=== PATIENT | female | born 1985 | race American Indian/Alaskan Native ===

== ENCOUNTER 2017-08-11 20:48 | Inpatient (IN) | payer MEDICAID, OTHER ==
[2017-08-11 21:43] LABS: Hematocrit 25.4 % (30.3-42.9); Hemoglobin 7.5 gm/dl (10.1-14.3); Mean Corpuscular HGB Conc 30 % (30-34); Red Blood Count 4.36 M/mm3 (3.65-5.03)
[2017-08-11 21:44] LABS: Basophils % (Auto) 0.6 % (0.0-1.8); Eosinophils # (Auto) 0.1 K/mm3 (0.0-0.4); Eosinophils % (Auto) 1.1 % (0.0-4.3); Lymphocytes # (Auto) 2.2 K/mm3 (1.2-5.4); Lymphocytes % (Auto) 33.6 % (13.4-35.0); Monocytes # (Auto) 0.5 K/mm3 (0.0-0.8); Monocytes % (Auto) 7.1 % (0.0-7.3); Platelet Count 234 K/mm3 (140-440)
[2017-08-11 21:49] LABS: Mean Corpuscular Hemoglobin 17 pg (28-32); Mean Corpuscular Volume 58 fl (79-97); Red Cell Distribution Width 21.3 % (13.2-15.2)
[2017-08-11 22:01] LABS: BUN/Creatinine Ratio 10; Blood Urea Nitrogen 7 mg/dL (7-17); Calcium 8.9 mg/dL (8.4-10.2); Hemolysis Index 3
[2017-08-12 00:03] LABS: Bilirubin,Urine NEG (Negative); Blood,Urine NEG (Negative); Color,Urine Yellow (Yellow); Mucus,Urine 1+ /HPF; Protein,Urine <15 mg/dL mg/dL (Negative); Urobilinogen,Urine < 2.0 mg/dL (<2.0); WBC,Urine < 1.0 /HPF (0.0-6.0)
[2017-08-12] MEDS ORDERED: TYLENOL PO ONE (05:59)
[2017-08-12] MEDS ORDERED: TYLENOL ONE (06:01)
[2017-08-12] MEDS ORDERED: ZOFRAN IV ONE (09:25)
[2017-08-12] MEDS ORDERED: MORPHINE IV ONE ×3 (09:26→12:50)
--- NOTE | 2017-08-12 09:29 | Emergency Department Report ---
HPI - General Chief Complaint: Chest Pain Time Seen by Provider: 08/12/17 09:01 - HPI HPI: Room 19 The patient is a 32-year-old female presenting with a chief complaint of body pain. The patient stated 4 which is intermittent headache radiating to her face. The patient states for the past 3 days she's had intermittent substernal chest pain described as a sharpness and tightness. Patient also noticed some epigastric abdominal discomfort intermittently for one week. The patient states her chest tightness is associated with shortness of breath and diaphoresis. Patient denies nausea or vomiting. Patient denies any history of fever. Patient denies any preceding trauma. The patient states since 2014 her cycles usually last approximately 7-8 days and she goes to approximately 8 pads per day. The patient states she has not been diagnosed with anemia recently Location: [See above] Duration: [See above] Quality: Sharp/tightness Severity: 06/26 Modifying factors: [see above] Context: See above Mode of transportation: Unknown ED Past Medical Hx - Past Medical History Previous Medical History?: Yes Hx Hypertension: Yes Hx GERD: Yes Additional medical history: Fibroids, Ovarian cyst - Surgical History Past Surgical History?: No - Family History Family history: no significant - Social History Smoking Status: Current Every Day Smoker (1/2 pack per day) Substance Use Type: Marijuana ED Review of Systems ROS: Stated complaint: CHEST,STOMACH PAIN,DIZZY,HEADACHE Other details as noted in HPI Constitutional: diaphoresis Respiratory: shortness of breath Cardiovascular: chest pain Gastrointestinal: abdominal pain. denies: nausea, vomiting Genitourinary: other (menorrhagia) Musculoskeletal: back pain Neurological: headache Physical Exam - Physical Exam Vital Signs: Vital Signs 08/11/17 08/11/17 08/12/17 21:11 21:13 07:21 Temperature 99.2 F 97.6 F Pulse Rate 88 76 Respiratory 20 14 16 Rate Blood Pressure 136/87 Blood Pressure [Left] O2 Sat by Pulse 100 100 Oximetry 08/12/17 07:40 Temperature Pulse Rate 57 L Respiratory 16 Rate Blood Pressure Blood Pressure 146/97 [Left] O2 Sat by Pulse 98 Oximetry Physical Exam: GENERAL: The patient is well-developed well-nourished female lying on stretcher not appear to be in acute distress. [] HEENT: Normocephalic. Atraumatic. Extraocular motions are intact. Patient has moist mucous membranes. NECK: Supple. Trachea midline CHEST/LUNGS: Clear to auscultation. There is no respiratory distress noted. HEART/CARDIOVASCULAR: Regular. There is no tachycardia. There is no gallop rub or murmur. ABDOMEN: Abdomen is soft. There is no rebound or guarding. Patient has normal bowel sounds. There is no abdominal distention. SKIN: There is no rash. There is no diaphoresis. NEURO: The patient is awake, alert, and oriented. The patient is cooperative. The patient has no focal neurologic deficits. The patient has normal speech. Cranial nerves II through XII grossly intact, no drift MUSCULOSKELETAL: There is no evidence of acute injury. ED Course Vital Signs 08/11/17 08/11/17 08/12/17 21:11 21:13 07:21 Temperature 99.2 F 97.6 F Pulse Rate 88 76 Respiratory 20 14 16 Rate Blood Pressure 136/87 Blood Pressure [Left] O2 Sat by Pulse 100 100 Oximetry 08/12/17 07:40 Temperature Pulse Rate 57 L Respiratory 16 Rate Blood Pressure Blood Pressure 146/97 [Left] O2 Sat by Pulse 98 Oximetry ED Medical Decision Making - Lab Data Result diagrams: 08/11/17 21:26 08/11/17 21:26 Laboratory Tests 08/11/17 08/11/17 08/11/17 21:26 21:26 21:26 WBC 6.4 RBC 4.36 Hgb 7.5 L Hct 25.4 L MCV 58 L MCH 17 L MCHC 30 RDW 21.3 H Plt Count 234 Lymph % (Auto) 33.6 Owen % (Auto) 7.1 Eos % (Auto) 1.1 Baso % (Auto) 0.6 Lymph # 2.2 Owen # 0.5 Eos # 0.1 Baso # 0.0 Seg Neutrophils % 57.6 Seg Neutrophils # 3.7 Sodium 138 Potassium 3.6 Chloride 101.9 Carbon Dioxide 21 L Anion Gap 19 BUN 7 Creatinine 0.7 Estimated GFR > 60 BUN/Creatinine Ratio 10 Glucose 135 H Calcium 8.9 Troponin T < 0.010 HCG, Qual Negative Urine Color Urine Turbidity Urine pH Ur Specific [place] Urine Protein Urine Glucose (UA) Urine Ketones Urine Blood Urine Nitrite Urine Bilirubin Urine Urobilinogen Ur Leukocyte Esterase Urine WBC (Auto) Urine RBC (Auto) U Epithel Cells (Auto) Urine Mucus 08/11/17 08/12/17 08/12/17 Unknown 00:22 03:25 WBC RBC Hgb Hct MCV MCH MCHC RDW Plt Count Lymph % (Auto) Owen % (Auto) Eos % (Auto) Baso % (Auto) Lymph # Owen # Eos # Baso # Seg Neutrophils % Seg Neutrophils # Sodium Potassium Chloride Carbon Dioxide Anion Gap BUN Creatinine Estimated GFR BUN/Creatinine Ratio Glucose Calcium Troponin T < 0.010 < 0.010 HCG, Qual Urine Color Yellow Urine Turbidity Clear Urine pH 5.0 Ur Specific [place] 1.025 Urine Protein <15 mg/dl Urine Glucose (UA) Neg Urine Ketones Neg Urine Blood Neg Urine Nitrite Neg Urine Bilirubin Neg Urine Urobilinogen < 2.0 Ur Leukocyte Esterase Neg Urine WBC (Auto) < 1.0 Urine RBC (Auto) 1.0 U Epithel Cells (Auto) 1.0 Urine Mucus 1+ - EKG Data -: EKG Interpreted by Me EKG shows normal: sinus rhythm Rate: normal - EKG Data When compared to previous EKG there are: previous EKG unavailable Interpretation: nonspecific ST-T wave jaycee (early repolarization) - Radiology Data Radiology results: report reviewed (CT head, chest x-ray), image reviewed (CT head, chest x-ray) interpreted by me: Chest x-ray-no focal laboratories, no pneumothorax CT head-normal CT head - Differential Diagnosis ACS, symptomatic anemia, migraines Critical care attestation.: If time is entered above; I have spent that time in minutes in the direct care of this critically ill patient, excluding procedure time. ED Disposition Clinical Impression: Chest pain, Headache, Anemia Disposition: OP ADMIT IP TO THIS HOSP Is pt being admited?: Yes Does the pt Need Aspirin: Yes Condition: Fair Instructions: Chest Pain (ED) Referrals: PRIMARY CARE, [Primary Care Provider] - 3-5 Days Time of Disposition: 10:25 (hospitalist notified (Dr Kingston))
[2017-08-12] MEDS ORDERED: ATROVENT IH ONE (09:36)
[2017-08-12] MEDS ORDERED: PROVENTIL IH ONE (09:36)
[2017-08-12] MEDS ORDERED: MORPHINE ONE (12:50)
--- NOTE | 2017-08-12 14:06 | History and Physical Report ---
History of Present Illness Date of examination: 08/12/17 Date of admission: 08/12/17 Chief complaint: General body pains and shortness of breath and chest pain History of present illness: 32-year-old female was significant past medical history presented to the emergency room with generalized body pains chest pain headache and abdominal pain , patient states that she has these complaints intermittent for the past 34 days Patient also reports chest tightness with mild shortness of breath and diaphoresis , grates pain between 4-5/10 Denies nausea vomiting or palpitations , no relieving and aggravating factors . Patient has history of menorrhagia with history of fibroid uterus Patient reports worsening of her tolerance, fatigue and tiredness Has history of hypertension not on any medications First set of cardiac enzymes negative, CT head and chest x-ray within normal limits Past History Past Medical History: hypertension, other (fibroid uterus, menorrhagia) Past Surgical History: No surgical history Social history: lives with family, smoking, alcohol abuse (occasional) Family history: diabetes, hypertension Medications and Allergies Allergies Allergy/AdvReac Type Severity Reaction Status Date / Time No Known Allergies Allergy Verified 03/16/16 11:12 Review of Systems Constitutional: fatigue, weakness, no weight loss, no weight gain Ears, nose, mouth and throat: no nasal congestion, no nasal discharge Cardiovascular: chest pain, no orthopnea, no palpitations Respiratory: no cough with sputum, no shortness of breath Gastrointestinal: no abdominal pain, no nausea, no vomiting Genitourinary Female: menorrhagia, no pelvic pain, no dysuria Musculoskeletal: no myalgias, no arthritis Integumentary: no rash, no lesions Neurological: headaches, migraines, no seizures, no syncope Psychiatric: no anxiety, no depression Endocrine: no cold intolerance, no heat intolerance, no polydipsia, no polyuria Hematologic/Lymphatic: no easy bruising, no easy bleeding Allergic/Immunologic: no urticaria, no allergic rhinitis Exam - Constitutional Vitals: Temp Pulse Resp BP Pulse Ox 97.6 F 86 16 137/78 98 08/11/17 21:13 08/12/17 12:49 08/12/17 12:49 08/12/17 12:49 08/12/17 12:49 General appearance: Present: no acute distress, well-nourished, obese - EENT Eyes: Present: PERRL, EOM intact - Neck Neck: Present: supple, normal ROM - Respiratory Respiratory effort: normal Respiratory: negative: rales, rhonchi, wheezing - Cardiovascular Rhythm: regular Heart Sounds: Present: S1 & S2 - Extremities Extremities: no ischemia, No edema - Abdominal General gastrointestinal: Present: soft, non-tender, non-distended, normal bowel sounds - Integumentary Integumentary: Present: clear, warm - Musculoskeletal Musculoskeletal: strength equal bilaterally - Psychiatric Psychiatric: appropriate mood/affect, cooperative - Neurologic Neurologic: CNII-XII intact, moves all extremities Results - Labs CBC & Chem 7: 08/11/17 21:26 08/11/17 21: Labs: Abnormal lab results 08/11/17 08/11/17 Range/Units 21: 21: Hgb 7.5 L (10.1-14.3) gm/dl Hct 25.4 L (30.3-42.9) % MCV 58 L (79-97) fl MCH 17 L (28-32) pg RDW 21.3 H (13.2-15.2) % Carbon Dioxide 21 L (22-30) mmol/L Glucose 135 H (65-100) mg/dL Assessment and Plan --Atypical chest pain; probably secondary to anemia and poor perfusion Serial cardiac enzymes, EKG, aspirin and beta blockers and messi inhibitors and nitrates Current medications --Symptomatic Anemia; hemoglobin is 7.5 Patient has history of menorrhagia, closely monitor H&H and transfuse as needed She denies symptoms of vague chest pain, fatigue headache and generalized weakness Patient needs to see MAMMOGRAPHY TECHNICIAN for further evaluation and management upon discharge --History of fibroid uterus/menorrhagia Supportive care, advised to follow MAMMOGRAPHY TECHNICIAN for further evaluation upon discharge --Possible gastroesophageal reflux disease; Protonix --Ongoing tobacco use; counseling smoking cessation Nicotine patch as needed We'll closely monitor the patient and adjust the management as needed May down grade 2 medical floor with remote telemetry Plan of care reviewed with the patient, answered all her questions Possible discharge in 1-2 days stable
[2017-08-12] MEDS ORDERED: NITROSTAT SL PRN (15:46)
[2017-08-12] MEDS ORDERED: MORPHINE IV PRN (15:46)
[2017-08-12] MEDS ORDERED: TYLENOL PO PRN (15:46)
[2017-08-12] MEDS: HABITROL TD SCH (20:46)
[2017-08-12] MEDS: FEOSOL PO SCH (23:55)
[2017-08-12] MEDS: PEPCID PO SCH (23:55)
[2017-08-13 05:14] VITALS: BP 114/66
[2017-08-13 08:02] LABS: Hematocrit 25.6 % (30.3-42.9); Hemoglobin 7.9 gm/dl (10.1-14.3)
[2017-08-13 08:11] LABS: Chol/HDL Ratio 2.17 %; HDL Cholesterol 41 mg/dL (40-59); LDL Cholesterol,Direct 42 mg/dL (50-130)
[2017-08-13] MEDS: FEOSOL PO SCH (09:56)
[2017-08-13] MEDS: PEPCID PO SCH (09:56)
[2017-08-13] MEDS: HABITROL TD SCH (09:56)
[2017-08-13] MEDS ORDERED: LOVENOX SUB-Q SCH (10:00)
--- NOTE | 2017-08-13 13:14 | Discharge Summary ---
Providers - Providers Date of Admission: 08/12/17 12:52 Date of discharge: 08/13/17 Attending physician: KEATON URRUTIA Primary care physician: DIRECTOR OF ADULT EPILEPSY Hospitalization Reason for admission: chest pain Condition: Fair Disposition: DC-01 TO HOME OR SELFCARE Time spent for discharge: 31 min Core Measure Documentation - Palliative Care Palliative Care/ Comfort Measures: Not Applicable - Core Measures Any of the following diagnoses?: none Exam - Constitutional Vitals: Temp Pulse Resp BP Pulse Ox 97.6 F 80 20 114/66 96 08/13/17 05:29 08/13/17 05:29 08/13/17 10:06 08/13/17 05:29 08/13/17 10:00 General appearance: Present: no acute distress, well-nourished - EENT Eyes: Present: PERRL, EOM intact - Neck Neck: Present: supple, normal ROM - Respiratory Respiratory effort: normal Respiratory: bilateral: diminished, negative: rales, rhonchi, wheezing - Cardiovascular Rhythm: regular Heart Sounds: Present: S1 & S2 - Extremities Extremities: no ischemia, No edema - Abdominal General gastrointestinal: Present: soft, non-tender, non-distended, normal bowel sounds - Integumentary Integumentary: Present: clear, warm - Musculoskeletal Musculoskeletal: strength equal bilaterally - Psychiatric Psychiatric: appropriate mood/affect, cooperative - Neurologic Neurologic: CNII-XII intact, moves all extremities Plan Activity: no restrictions Diet: regular Additional Instructions: Advised to see private MANAGER CHINESE in 3-4 days for further evaluation and management of fibroid uterus, and menorrhagia. If you have recurrent chest pain, shortness of breath, contact M.D. or go to emergency room Follow up with: PRIMARY CARE, [Primary Care Provider] - 3-5 Days Prescriptions: Famotidine [Pepcid] 20 mg PO BID #30 tablet Ferrous Sulfate [Feosol 325 MG tab] 325 mg PO BID #60 tablet Nicotine [Habitrol] 14 mg TD QDAY #30 patch
--- NOTE | 2017-08-14 11:30 | XRay Report ---
AP CHEST: HISTORY: chest pain AP view of the chest demonstrates a normal mediastinal and cardiac contour with clear lungs and normal bony and soft tissue structures. IMPRESSION: Unremarkable AP chest.
--- NOTE | 2017-08-15 12:57 | Cat Scan Report ---
CT HEAD WITHOUT CONTRAST: HISTORY: Headache. TECHNIQUE: Sequential 2.5mm CT images. COMPARISON: none. FINDINGS: Cerebral Parenchyma: Within normal limits. Cerebellum: Within normal limits. Brainstem: Within normal limits. Ventricles: Normal. Sella: Normal. Extra-axial spaces: Normal. Basal Cisterns: Normal. Intracranial Hemorrhage: None. Midline Shift: None. Calvarium: Normal. Sinuses: Normal. Mastoid Air Cells: Normal. Visualized Orbits: Normal. IMPRESSION: Cranial CT scan within normal limits.
== END 2017-08-13 17:20 | disposition home or self-care (01) | DRG 313 ==
LOC: ED 20:48 → 4A 08-12 12:52
PROVIDERS: ADMIT Internal Medicine; ATTEND Internal Medicine
DX: R07.89 Other chest pain (principal); D64.9 Anemia, unspecified; I10 Essential (primary) hypertension; K21.9 Gastro-esophageal reflux disease without esophagitis; F17.200 Nicotine dependence, unspecified, uncomplicated; Z71.6 Tobacco abuse counseling; Z82.49 Family history of ischemic heart disease and other diseases of the circulatory system; Z83.3 Family history of diabetes mellitus
CPT/HCPCS: 36415; 70450; 71045; 80048; 80061; 81001; 82550; 82553; 84484; 84703; 85014; 85018; 85025; 93005; 93010; 96374; 96375; 96376; 99406; J1650; J2270; J2405

== ENCOUNTER 2018-07-05 09:22 | Observation (INO) | payer MEDICAID ==
[2018-07-01 13:18] LABS: Mean Corpuscular HGB Conc 29 % (30-34); Platelet Count 515 K/mm3 (140-440); Red Blood Count 4.29 M/mm3 (3.65-5.03)
[2018-07-01 13:20] LABS: Hematocrit 24.5 % (30.3-42.9); Hemoglobin 7.1 gm/dl (10.1-14.3); Mean Corpuscular Volume 57 fl (79-97); Red Cell Distribution Width 23.2 % (13.2-15.2)
--- NOTE | 2018-07-01 13:36 | Anesthesia Consultation ---
Anesthesia Consult and Med Hx Date of service: 07/05/18 - Airway Anesthetic Teeth Evaluation: Good ROM Head & Neck: Adequate Mental/Hyoid Distance: Adequate Mallampati Class: Class II Intubation Access Assessment: Probably Good - Pulmonary Exam CTA: Yes - Cardiac Exam Cardiac Exam: RRR - Pre-Operative Health Status ASA Pre-Surgery Classification: ASA1, ASA2 Proposed Anesthetic Plan: General - Pulmonary Hx Smoking: Yes (1 ppd >15 years) Hx Asthma: No Hx Respiratory Symptoms: Yes (morning cough) SOB: No COPD: No Hx Pneumonia: No Hx Sleep Apnea: No - Cardiovascular System Hx Hypertension: Yes (since 2012) Hx Coronary Artery Disease: No Hx Cardia Arrhythmia: Yes (h/o palpitations) Hx Pacemaker: No Hx Internal Defibrillator: No Hx Peripheral Vascular Disease: No - Central Nervous System Hx Neuromuscular Disorder: No CVA: No Hx Psychiatric Problems: No - Gastrointestinal Hx Ulcer: No Hx Gastroesophageal Reflux Disease: Yes (improved with food; will give pepcid IV DOS) - Endocrine Hx Renal Disease: No Hx End Stage Renal Disease: No Hx Liver Disease: No Hx Hyperthyroidism: Yes (on medication, to continue as scheduled ) - Hematic Hx Anemia: Yes - Other Systems Hx Alcohol Use: Yes (Occas) Hx Substance Use: Yes (Marijuana and Ectasy last used 3 weeks ago) Hx Cancer: No Hx Obesity: Yes - Additional Comments Anesthesia Medical History Comments: no previous surgery, no FHAC
[2018-07-01 14:31] LABS: Total Cells Counted 100
[2018-07-01 14:32] LABS: Anisocytosis 2+; Eosinophils % (Manual) 0 % (0.0-4.3); Hypochromasia 2+; Ovalocytes Few; Poikilocytosis 1+; Target Cells Few
[2018-07-01 14:33] LABS: Large Platelets 1+; Platelet Estimate Consistent w Auto; Tear Drop Cells Few
--- NOTE | 2018-07-04 16:18 | History and Physical Report ---
History of Present Illness Date of examination: 07/04/18 Date of admission: 07/05/18 Chief complaint: dysfunctional uterine bleeding History of present illness: 33y/o with dysfunctional uterine bleeding and uterine fibroids. The patient has developed significant anemia with a recent hemoglobin of 8. Ultrasound demonstrates an enlarged uterus of 12.2cm with a dominant myoma measuring 4.5cm. The patient has failed medical management and elects to undergo definitive surgical management. 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: fibroids Social history: single, smoking - Obstetrical History : 4 Para: 3 Hx # Term Pregnancies: 3 Number of Pregnancies: 0 Spontaneous Abortions: 1 Induced : 0 Number of Living Children: 4 Medications and Allergies Allergies Allergy/AdvReac Type Severity Reaction Status Date / Time No Known Allergies Allergy Verified 06/27/18 17:41 Home Medications Medication Instructions Recorded Confirmed Last Taken Type RX: Ferrous Sulfate [Feosol 325 MG 325 mg PO Q72H 06/27/18 06/27/18 Unknown History tab] amLODIPine [Norvasc] 5 mg PO DAILY 06/27/18 06/27/18 Unknown History methIMAzole [Methimazole] 5 mg PO DAILY 06/27/18 06/27/18 Unknown History Active Meds: Active Medications Albuterol (Proventil) 2.5 mg IH PREOP NR Stop: 07/05/18 23:59 Celecoxib (Celebrex) 200 mg PO PREOP NR Stop: 07/05/18 23:59 Fentanyl (Sublimaze) 100 mcg IV ONCE PRN PRN Reason: sedation for nerve block Stop: 07/05/18 23:59 Gabapentin (Neurontin) 300 mg PO PREOP NR Stop: 07/05/18 23:59 Lactated Ringer's (Lactated Ringers) 1,000 mls @ 100 mls/hr IV DIRECT LAUREN Midazolam HCl (Versed) 2 mg IV PREOP NR Stop: 07/05/18 23:59 Review of Systems All systems: negative Constitutional: fatigue, weakness Genitourinary: vaginal bleeding, pelvic pain - Vital Signs Vital signs: Vital Signs Temp Pulse Resp BP Pulse Ox 98.8 F 92 H 20 127/82 100 07/01/18 12:30 07/01/18 12:30 07/01/18 12:30 07/01/18 12:30 07/01/18 12:30 Temp Pulse Resp BP Pulse Ox 98.8 F 92 H 20 127/82 100 07/01/18 12:30 07/01/18 12:30 07/01/18 12:30 07/01/18 12:30 07/01/18 12:30 - Physical Exam Breasts: Positive: deferred Cardiovascular: Regular rate Lungs: Positive: Clear to auscultation Abdomen: Positive: normal appearance Results Result Diagrams: 07/01/18 12:40 All other labs normal. Assessment and Plan - Patient Problems (1) Leiomyoma Status: Acute Plan to address problem: scheduled for a robotic hysterectomy will transfuse preoperatively (2) Dysfunctional uterine bleeding Status: Acute (3) Anemia Status: Acute
[~2018-07-05 09:22] MED LIST: ANCEF/STERILE WATER 2 GM/20 ML 2 GM/20 ML SYRINGE IV NR; LACTATED RINGERS 1,000 ML IV SCH; NACL 0.9% 500 ML 500 ML IV NR; NACL BACTERIOSTATIC INFILTRATI ONE; NEURONTIN PO NR; PROVENTIL IH NR; SUBLIMAZE IV PRN; VERSED IV NR
--- NOTE | 2018-07-05 09:46 | Anesthesia Day of Surgery ---
Anesthesia Day of Surgery - Day of Surgery Patient Examined: Yes Patient H&P Reviewed: Yes Patient is NPO: Yes
[2018-07-05] MEDS ORDERED: DILAUDID IV PRN (09:47)
[2018-07-05] MEDS ORDERED: ZEMURON IV ONE (11:14)
[2018-07-05] MEDS ORDERED: DIPRIVAN 10 MG/ML IV ONE (11:14)
[2018-07-05] MEDS ORDERED: SUBLIMAZE ONE (11:14)
[2018-07-05] MEDS ORDERED: XYLOCAINE MPF 2% ONE (11:14)
[2018-07-05] MEDS ORDERED: MARCAINE 0.25% INFILTRATI ONE (11:41)
[2018-07-05] MEDS ORDERED: DECADRON ONE (11:41)
[2018-07-05] MEDS ORDERED: NEOSPORIN GU IR ONE ×2 (12:57→14:37)
[2018-07-05] MEDS ORDERED: PEPCID IV ONE (13:04)
[2018-07-05] MEDS ORDERED: NEO SYNEPHRINE ONE (14:05)
[2018-07-05] MEDS ORDERED: ZOFRAN ONE (14:33)
[2018-07-05] MEDS ORDERED: NACL 0.9% IR ONE ×2 (14:35→14:36)
[2018-07-05] MEDS ORDERED: NARCAN 0.4 MG/1 ML IV PRN (15:06)
[2018-07-05] MEDS ORDERED: AMBIEN PO PRN (15:07)
[2018-07-05] MEDS ORDERED: ZOFRAN ODT PO PRN (15:07)
[2018-07-05] MEDS ORDERED: TYLENOL PO PRN (15:07)
[2018-07-05] MEDS ORDERED: ROBINUL ONE (15:11)
[2018-07-05] MEDS ORDERED: BLOXIVERZ ONE (15:11)
--- NOTE | 2018-07-05 15:13 | Operative Report ---
Operative Report Operative Report: Date of surgery: 07/05/2018 Preoperative diagnoses: Symptomatic uterine fibroids; menorrhagia; anemia Postoperative diagnoses: Same as above Procedure: Robotic hysterectomy; bilateral salpingectomy Surgeon: Gabi Strange M.D. Greeter: Mami Carlisle Anesthesia: Gen. endotracheal anesthesia Estimated blood loss: 100 mL Pathology: Uterus, cervix, bilateral tubes, leiomyoma Indication: 33-year-old with a history of symptomatic uterine fibroids. The patient experiences significant menorrhagia that is closed caused severe anemia. The patient was transfused intraoperatively with 3 units of packed red blood cells. Procedure: The patient was taken to the operating room and given general endotracheal anesthesia without complication. She is prepped and draped in a normal sterile fashion. A bivalve speculum was placed in the patient's vagina and a single- tooth tenaculum placed on the anterior lip of the cervix. The uterus was sounded with the uterine sound. A Pcsso uterine manipulator was placed in the bivalve speculum was then removed. Attention was then turned to the patient's abdomen where a millimeter supra umbilical skin incision was then made. A Veress needle was placed and peritoneal entry was verified water-filled syringe. Insufflation of the peritoneal cavity was performed with CO2 gas. The 12 mm trocar was then placed under direct visualization. An additional 8 mm trocar was placed on the patient's left and right lateral side just opposite of the supraumbilical trocar. An additional 5 mm right lateral trocar was then placed as the accessory port. The patient was then placed in steep Trendelenburg. The da Pedro robot was then engaged. A fenestrated forcep was placed in arm 2 and a vessel sealer was placed in arm 1. The surgeon then transferred to the surgical console. General survey of the patient's abdomen and pelvis revealed an enlarged fibroid uterus with multiple leiomyomas. The ovaries and tubes were normal in appearance. The mesosalpinx was then isolated on the right. The vessel sealer was used to coagulate the mesosalpinx which was then transected. The tube was transected from the ovary. The tubo-ovarian ligament was then coagulated and transected. The round ligament was then coagulated and transected also. The vesicouterine peritoneum was then entered from the patient's right side. The uterine vessels were then coagulated with the vessel sealer. The vessels were then transected . Attention was then turned to the patient's left side where the tubo-ovarian ligament and mesosalpinx were again isolated coagulated and transected. The vesical peritoneum was then entered from the left and joined in the midline. Peritoneum was reflected off of the lower uterine segment. Uterine vessels were then coagulated and then transected. The blood supply to the uterus was adequately contained. A myomectomy was performed in order to decompress the size of the uterus. The monopolar scissors were used to incise the serosa and the leiomyomas were removed with sharp dissection. The V care ring was visualized. Posterior colpotomy was created with the monopolar scissors. The incision was continued circumferentially until anterior colpotomy was made. The cervix and uterus were amputated from the vaginal cuff. The uterus was then removed along with the tubes bilaterally and 3 leiomyomas through the vagina and a warm laparotomy sponge was placed and maintain the pneumoperitoneum. The vaginal cuff was then closed in a running fashion with V lock suture. Irrigation of the pelvis was performed. Hemoblast was applied to the incision. The supraumbilical 12 mm trocar site was closed with the Sony Simpson device. The skin was then reapproximated with 4-0 Monocryl. The tissue was sent to pathology which included the cervix and uterus. The patient was then successfully extubated. She was then taken to the recovery room in stable condition. All sponge laps and needle counts were correct x2.
[2018-07-05] MEDS ORDERED: LACTATED RINGERS 1,000 ML ONE (15:45)
[2018-07-05] MEDS ORDERED: BREVIBLOC IV ONE (15:50)
[2018-07-05] MEDS ORDERED: MORPHINE PCA 30MG/30ML IV SCH (16:00)
[2018-07-05] MEDS ORDERED: D5LR 1,000 ML IV SCH (16:00)
[2018-07-05] MEDS: TORADOL IV SCH (22:57)
[2018-07-06] MEDS: TORADOL IV SCH ×2 (04:43→21:56)
[2018-07-06 06:47] LABS: Hematocrit 33.1 % (30.3-42.9)
[2018-07-06] MEDS: IBUPROFEN PO PRN (15:21)
[2018-07-06] MEDS: PERCOCET 5/325 PO PRN (15:22)
[2018-07-06] MEDS ORDERED: DULCOLAX PR PRN (15:37)
--- NOTE | 2018-07-06 15:53 | Progress Note ---
Assessment and Plan POD 1 s/p robotic tlh. Pt reports chronic gi issues and is concerned that surgery may exacerbate the condition. WIll order suppository to help promote GI function Subjective - Subjective Date of service: 07/06/18 Patient reports: appetite normal, voiding normally, flatus (minimal), pain poorly controlled, ambulating normally Objective - Vital Signs Latest vital signs: Vital Signs Temp Pulse Resp Resp BP BP Pulse Ox 07/06/18 15:22 18 07/06/18 15:21 18 07/06/18 12:27 98.4 F 80 18 98/67 100 07/06/18 10:32 16 07/06/18 07:56 98.8 F 79 18 102/65 100 07/06/18 06:35 18 07/06/18 04:43 18 07/06/18 04:35 18 07/06/18 04:10 98.5 F 82 20 95/54 98 07/06/18 02:55 16 07/06/18 00:20 18 07/06/18 00:00 98.4 F 20 07/05/18 23:49 97 H 116/76 99 07/05/18 22:57 18 07/05/18 22:30 18 07/05/18 20:45 18 18 07/05/18 20:25 99 H 127/81 90 07/05/18 20:10 98.6 F 18 100 07/05/18 17:33 83 18 114/75 07/05/18 16:47 90 20 118/81 99 07/05/18 16:30 98.5 F 89 20 120/76 99 07/05/18 16:15 90 20 121/83 99 07/05/18 16:00 88 20 117/79 99 Intake and Output 07/06/18 07/06/18 07/06/18 06:59 14:59 22:59 Intake Total 840 Output Total 1300 200 Balance -1300 640 Intake: Oral 480 Intake, Free Water 360 Output: Urine 1300 200 Indwelling Catheter 1300 Void 200 Other: Total, Intake Amount 240 Total, Output Amount 1300 200 # Voids Void 1 - Exam Breasts: Present: deferred Cardiovascular: Present: Regular rate, Normal S1, Normal S2 Lungs: Present: Clear to auscultation, Normal air movement Abdomen: Present: normal appearance, soft, distention (mild), tenderness (to palpation), normal bowel sounds Uterus: Present: normal Extremities: Present: normal Deep Tendon Reflex Grade: Normal +2 Incision: Present: normal, dry, intact - Labs Labs: Abnormal lab results 07/05/18 07/06/18 Range/Units 10:00 06:11 Hgb 10.0 L (10.1-14.3) gm/dl Crossmatch See Detail
[2018-07-07] MEDS: PERCOCET 5/325 PO PRN ×2 (00:06→09:49)
--- NOTE | 2018-07-07 09:03 | Discharge Summary ---
Providers - Providers Date of Admission: 07/05/18 15:07 Date of discharge: 07/07/18 Attending physician: AMERICA TORRES [facility] Reason for admission: other Procedure: other ([facility]) Episiotomy: none Laceration: none Incision: normal, dry, intact Condition at discharge: Good Disposition: DC-01 TO HOME OR SELFCARE Plan - Discharge Medications Prescriptions: Docusate Sodium [Colace] 100 mg PO BID PRN #60 capsule PRN Reason: Constipation Ibuprofen [Motrin] 800 mg PO Q8HR PRN #60 tablet PRN Reason: Pain, Mild (1-3) oxyCODONE /ACETAMINOPHEN [Percocet 5/325] 1 tab PO Q6HR PRN #30 tablet PRN Reason: Pain - Provider Discharge Summary Activity: routine, no sex for 6 weeks Diet: routine Instructions: routine Additional instructions: [] Smoking cessation referral if applicable(refer to patient education folder for contact #) [] Refer to [facility]'s [facility] Booklet Call your doctor immediately for: * Fever > 100.5 * Heavy vaginal bleeding ( >1 pad per hour) * Severe persistent headache * Shortness of breath * Reddened, hot, painful area to leg or breast * Drainage or odor from incision. * Keep incision clean and dry at all times and follow doctor's instructions reg arding bathing/showering - Follow up plan Follow up: MEÑO SALINAS MD [Primary Care Provider] - 7 Days
[2018-07-07 09:07] VITALS: BP 102/67
[2018-07-07] MEDS: IBUPROFEN PO PRN (09:46)
== END 2018-07-07 11:13 | disposition home or self-care (01) ==
LOC: OR 09:22 → OB 15:07
PROVIDERS: ADMIT Obstetrics & Gynecology; ATTEND Obstetrics & Gynecology
DX: D25.9 Leiomyoma of uterus, unspecified (principal); N92.0 Excessive and frequent menstruation with regular cycle; D64.9 Anemia, unspecified; I10 Essential (primary) hypertension; F17.200 Nicotine dependence, unspecified, uncomplicated; Z79.899 Other long term (current) drug therapy
CPT/HCPCS: 36415; 36430; 58552; 64450; 84703; 85007; 85014; 85018; 85025; 86850; 86900; 86901; 86920; 88307; 93005; 93010; 96374; 96375; 96376; A4217; G0378; J0690; J1100; J1885; J2250; J2270; J2370; J2405; J2704; J2710; J3010; J7120; J7121; P9016; S2900; J7040